=== PATIENT | male | born 1985 | race Caucasian/White ===

== ENCOUNTER 2022-03-06 05:38 | Emergency (ER) | payer MEDICAID ==
[~2022-03-06] VITALS: Ht 180.3 cm; Wt 77.3 kg
[2022-03-06 05:47] VITALS: BP 131/76
[2022-03-06] MEDS ORDERED: PERM60CR19 TOP (10:37)
[2022-03-06] MEDS ORDERED: diphenhydrAMINE 25mg capsule PO ONE (10:40)
== END 2022-03-06 11:13 | disposition home or self-care (01) ==
LOC: ER 05:39
DX: B88.9 Infestation, unspecified (principal); F15.20 Other stimulant dependence, uncomplicated; Z59.00 Homelessness unspecified
CPT/HCPCS: 99283; Q0163

== ENCOUNTER 2022-06-03 03:40 | Emergency (ER) | payer MEDICAID ==
[~2022-06-03] VITALS: Ht 180.3 cm; Wt 68.1 kg
[2022-06-03 03:44] VITALS: BP 140/92
[2022-06-03] MEDS ORDERED: OLANZapine 2.5MG tablet PO ONE (04:16)
[2022-06-03] MEDS ORDERED: olanzapine 10mg tablet PO ONE (04:16)
== END 2022-06-03 04:52 | disposition home or self-care (01) ==
LOC: ER 03:41
DX: F22 Delusional disorders (principal); F15.10 Other stimulant abuse, uncomplicated; Z56.0 Unemployment, unspecified
CPT/HCPCS: 99281